=== PATIENT | male | born 1990 | race Two or more races ===

== ENCOUNTER 2021-12-16 09:36 | Emergency (ER) | payer BC, SELFPAY ==
--- NOTE | ~2021-12-16 | XR_ITS ---
EXAMINATION: XR CHEST CLINICAL INFORMATION: Cough. COMPARISON: 03/15/2019 chest and rib radiographs. TECHNIQUE: Frontal view of the chest was obtained. FINDINGS: No significant abnormality is noted involving the heart, lungs, mediastinum, bony thorax or soft tissues. XR/XR chest 1V IMPRESSION: No acute cardiopulmonary process.
[2021-12-16 09:55] VITALS: BP 139/85; PULSE 62; RESP 18; TEMP 36.7; O2SAT 97; BMI 23.0
[2021-12-16 10:22] LABS: COVID-19 Test Negative (Negative); IDNOW Serial# 9DB6401D; Influenza A Negative (Negative); Influenza B2 Negative (Negative)
--- NOTE | 2021-12-16 10:55 | ED_ITS ---
HPI - URI/Sore Throat General Chief Complaint: Upper Respiratory Symptoms Stated Complaint: COVID Symptoms Time Seen by Provider: 12/16/21 10:45 Source: patient Mode of arrival: ambulatory Limitations: no limitations History of Present Illness HPI Narrative: 31-year-old male previously healthy here with reports of vomiting and diarrhea which started Tuesday evening. It continued through till Tuesday then seemed to improve. Patient tells me Tuesday night he developed cough with subjective fevers and chest discomfort with coughing. No shortness of breath, leg swelling or leg pain or abdominal pain. No vomiting or diarrhea since Tuesday. Patient has received COVID vaccinations and flu vaccinations. His girlfriend and child are home with similar symptoms. Related Data Allergies Allergy/AdvReac Type Severity Reaction Status Date / Time No Known Allergies Allergy Unverified 03/13/20 18:06 Review of Systems Review of Systems: Yes all other systems are reviewed and are negative Constitutional: Constitutional: Reports no additional constitutional complaints, Denies body ache(s), Reports chills, Reports fever(s), Denies headache(s) and Denies weakness Eyes: Eyes: Reports no additional eye complaints and Denies change in vision ENT: Reports system reviewed and no additional complaints, except as documented, Denies dizziness, Denies headache(s), Denies nasal congestion, Denies nasal discharge and Denies neck pain Cardiovascular: Cardiovascular: Reports no additional cardiovascular complaints, Reports chest pain, Denies leg edema and Denies dyspnea Respiratory: Respiratory: Reports no additional respiratory complaints, Reports cough and Denies dyspnea Gastrointestinal: Gastrointestinal: Reports no additional gastrointestinal complaints, Denies abdominal pain, Reports diarrhea, Reports nausea and Reports vomiting Genitourinary: Genitourinary: Denies urinary incontinence Musculoskeletal: Musculoskeletal: Reports no additional musculoskeletal complaints, Denies back pain, Denies arthralgias, Denies joint swelling, Denies neck pain, Denies numbness and Denies tingling Integumentary/Breasts: Skin/Breast: Reports system reviewed and no additional complaints, except as docu and Denies rash Neurologic: Denies Abnormal speech present, Denies dizziness, Denies headache(s), Denies numbness, Denies tingling and Denies weakness PMF Past Medical History Attestation statement: The following information was validated with the patient. Source: old records reviewed and nursing notes reviewed Social History Social History Advance Directives: No Advance Directives Information Provided: Yes Physical Exam Vital Signs: Vital Signs: Last Vital Signs Temp 98.1 F 12/16/21 09:55 Pulse 62 12/16/21 09:55 Resp 18 12/16/21 09:55 BP 139/85 12/16/21 09:55 Pulse Ox 97 12/16/21 09:55 O2 Del Method 12/16/21 09:55 BMI result Body Mass Index 23.0 Const: General: cooperative, healthy appearing, comfortable and no acute distress Orientation/consciousness: patient oriented x3 Limitations: no limitations HEENT: Head: Yes normal to inspection Ears: hearing grossly normal bilaterally and TM's normal bilaterally General nose exam: Normal external nose present Face and sinus: Yes normal facial exam Mouth: Normal oral and palatal mucosa present Throat: Yes posterior oropharynx normal Eyes: General: appearance normal, both eyes and all related structures Pupils: Equal, round and reactive pupils present Neck: Neck: Yes normal visual inspection Chest: Chest palpation & inspection: normal inspection of the chest Resp: Effort & Inspection: normal respiratory effort Auscultation: clear to auscultation bilaterally Cardio: Rate: regular rate Rhythm: regular rhythm Peripheral pulses: Peripheral pulses 2+ throughout GI: Inspection: Yes normal to inspection Palpation (GI): Soft to palpation and nontender Auscultation: normal bowel sounds Back/Spine/Pelvis: Thoracic/Lumbar Spine: thoracic and lumbar spine normal to inspection Skin: General skin exam: no rashes or lesions noted Neuro: General: patient oriented x3, no focal motor deficits and normal sensation to monofilament Cranial nerves: Yes Equal, round and reactive pupils present Cognition (Neuro): normal cognition Speech: No Abnormal speech present Gait exam (Neuro): Normal gait present Motor exam (neuro): 5/5 motor strength present throughout Extrem: General: Yes normal to inspection Course Course Course Narrative: Flu and COVID testing are negative. Chest x-ray shows no acute finding. Likely viral syndrome. Patient is tolerating p.o.. His lungs are clear throughout. Vitals are stable. Will discharge home with supportive care. Reviewed worrisome signs and symptoms of when to return to the emergency department. Comfortable discharge home. MDM - URI/Sore Throat MDM Narrative Medical decision making narrative: 31-year-old male here with flu-like symptoms since Tuesday evening. Vitals are s table. Lungs are clear. Exam is normal. Abdomen is soft and nontender. Will check flu and COVID testing, chest x-ray Medical Records Attestation: I reviewed the patient's medical records. Lab Data Attestation: I reviewed the patient's lab results. Labs: Lab Results 12/16/21 12/16/21 Range/Units 10:00 10:00 COVID-19 ([facility]) Negative (Negative) COVID-19 Clin Com See Note Influenza Type A ([facility]) Negative (Negative) Influenza Type B ([facility]) Negative (Negative) Influenza A & B Note See Note Imaging Data Chest x-ray: Attestation: I personally reviewed and interpreted this imaging study as follows: Radiologist's impression: EXAMINATION: XR CHEST CLINICAL INFORMATION: Cough. COMPARISON: 03/15/2019 chest and rib radiographs. TECHNIQUE: Frontal view of the chest was obtained. FINDINGS: No significant abnormality is noted involving the heart, lungs, mediastinum, bony thorax or soft tissues. XR/XR chest 1V IMPRESSION: No acute cardiopulmonary process. ? Discharge Plan Discharge Clinical Impression: Viral infection Patient Disposition: Home, Self-Care Instructions: Viral Syndrome (ED) Additional Instructions: Testing for flu and COVID are negative. Chest x-ray shows no acute finding. Increase fluids, rest Take Motrin or Tylenol for pain or fever Referrals: Physician,None [Primary Care Provider] - Stand Alone Forms: Work/School Release Interventions: ED Discharge Assessment Last Done: 12/16/21 11:47 Discharge Date/Time: 12/16/21 11:49
== END 2021-12-16 11:49 | disposition home or self-care (01) ==
PROVIDERS: Emergency Provider Emergency Medicine
DX: B34.9 Viral infection, unspecified (principal); R05.9 Cough, unspecified; Z20.822 Contact with and (suspected) exposure to COVID-19; Z79.899 Other long term (current) drug therapy
CPT/HCPCS: 71045; 87502; 87635; 99283

== ENCOUNTER 2022-12-15 12:38 | Emergency (ER) | payer BC, SELFPAY ==
--- NOTE | ~2022-12-15 | XR_ITS ---
EXAMINATION: LUMBAR SACRAL SPINE, PA CHEST AND LEFT RIBS. CLINICAL INFORMATION: Fall onto ribs with pain and back pain. COMPARISON: Chest x-ray of December 16, 2021 and rib series of March 15, 2019. TECHNIQUE: Three-view lumbar spine, PA chest, and 3 views of the left ribs. FINDINGS: There are 5 nonrib-bearing lumbar vertebra. The bony texture and alignment is satisfactory without evidence of acute fracture, spondylolisthesis, or spondylolysis. Pedicles are intact. Disc spaces maintained. Sacroiliac joints unremarkable. PA film of the chest does not demonstrate any evidence of acute parenchymal disease, pneumothorax, or pleural effusion. Heart normal size. No evidence of pulmonary edema. No acute displaced left rib fracture is identified. No pneumothorax or pleural effusion. XR/XR ribs LT min 3V w CXR1V IMPRESSION: No acute parenchymal disease within the chest. No acute displaced left rib fracture identified. No significant abnormality of the lumbosacral spine identified.
--- NOTE | ~2022-12-15 | XR_ITS ---
EXAMINATION: LUMBAR SACRAL SPINE, PA CHEST AND LEFT RIBS. CLINICAL INFORMATION: Fall onto ribs with pain and back pain. COMPARISON: Chest x-ray of December 16, 2021 and rib series of March 15, 2019. TECHNIQUE: Three-view lumbar spine, PA chest, and 3 views of the left ribs. FINDINGS: There are 5 nonrib-bearing lumbar vertebra. The bony texture and alignment is satisfactory without evidence of acute fracture, spondylolisthesis, or spondylolysis. Pedicles are intact. Disc spaces maintained. Sacroiliac joints unremarkable. PA film of the chest does not demonstrate any evidence of acute parenchymal disease, pneumothorax, or pleural effusion. Heart normal size. No evidence of pulmonary edema. No acute displaced left rib fracture is identified. No pneumothorax or pleural effusion. XR/XR lumbar spine 2-3V IMPRESSION: No acute parenchymal disease within the chest. No acute displaced left rib fracture identified. No significant abnormality of the lumbosacral spine identified.
--- NOTE | 2022-12-15 12:49 | ED.BACK ---
HPI - Back Pain/Injury General Stated Complaint: Back Pain S/P Fall 12/12/22 Related Data Allergies Allergy/AdvReac Type Severity Reaction Status Date / Time No Known Allergies Allergy Unverified 03/13/20 18:06 Course Course Course Narrative: RME: 32yo M w/ PMHx renal stone, HLD, sent in from PCP for intermittent right sided abdominal pain which became more constant w/nausea x3 days. denies fever, urinary sx abdomen soft & nontender in triage, patient standing/moving around Labs, UA ordered Full HPI, ROS and PE to be performed by primary ED provider.
[2022-12-15 13:04] VITALS: BP 136/93; PULSE 76; RESP 16; TEMP 36.8; O2SAT 98; BMI 22.4
--- NOTE | 2022-12-15 13:04 | ED_ITS ---
HPI - Back Pain/Injury General Chief Complaint: Back Pain/Injury Stated Complaint: Back Pain S/P Fall 12/12/22 Time Seen by Provider: 12/15/22 13:19 Source: patient and RN notes reviewed Mode of arrival: ambulatory Limitations: no limitations History of Present Illness HPI Narrative: This is a 32-year-old male presenting to the emergency department complaints of left-sided back pain and left-sided rib x 3 days. Patient reports that while he was skateboarding he fell and landed onto his left side. Patient reports that he had pain immediately following the fall. Patient denies any chest pain shortness. He reports the pain in left side back and left side his ribs worsened with palpation movement. Patient denies any fevers or chills no other complaints or concerns at this time. MD elicited complaint: back pain Pertinent past history: recent trauma Timing: constant Similar Symptoms Previously: No Quality: aching Radiation: none Exacerbating factors: none Relieving factors: immobilization Context: fall Associated symptoms: denies other symptoms Work related injury: No Related Data Previous Rx's Medication Instructions Recorded cyclobenzaprine 5 mg tablet 5 mg PO TID PRN muscle spasm #10 12/15/22 tabs ibuprofen 600 mg tablet 600 mg PO Q6H PRN pain #30 tabs 12/15/22 Allergies Allergy/AdvReac Type Severity Reaction Status Date / Time No Known Allergies Allergy Unverified 03/13/20 18:06 Review of Systems Review of Systems: Constitutional: No Weight loss, No Fever, No Chills ENT/Mouth: No Ear Pain, No Nasal Congestion, No Sinus Pain, No Hoarseness, No sore throat, No Rhinorrhea, No Swallowing Difficulty Cardiovascular: No Chest Pain, No SOB Respiratory: No Cough, No Sputum, No Wheezing Gastrointestinal: No Nausea, No Vomiting, No Diarrhea, No Constipation, No Abdominal pain Genitourinary: No Dysuria, No Urinary Frequency, No Hematuria, No Urinary Incontinence/retention, No Urgency, No Flank Pain Musculoskeletal: No joint pain, No Myalgias, No Joint Swelling Skin: No Skin Lesions, No rash Neuro: No Weakness, No Numbness, No Paresthesias PMFSH Past Medical History Attestation statement: The following information was validated with the patient. Social History Social History Advance Directives: No Advance Directives Information Provided: Yes Physical Exam Vital Signs: Vital Signs: Last Vital Signs Temp 98.3 F 12/15/22 13:04 Pulse 76 12/15/22 13:04 Resp 16 12/15/22 13:04 BP 136/93 H 12/15/22 13:04 Pulse Ox 98 12/15/22 13:04 O2 Del Method Room Air 12/15/22 13:04 BMI result Body Mass Index 22.4 Const: Other: General: Awake, alert, and oriented X3. No acute distress. HEENT: Normal inspection CVS: Normal heart rate and rhythm. Pulses normal. Respiratory: No respiratory distress, lungs clear to auscultation bilaterally, no wheezes, rales, or rhonchi Skin: Warm, dry, no rashes noted to exposed skin. Normal skin color. Normal skin turgor. Extremities: Normal to inspection MSK: No midline cervical, thoracic, or lumbar spine tenderness. Patient has tenderness to palpation over the left mid lumbar paraspinous muscles with spasm, mild tenderness to palpation along the left anterior ribs approximately ribs 7 through 9. Neuro: Oriented X 3. No motor deficit. No sensory deficit. Course Course Course Narrative: RME: 32yo m w/no sig PMHx c/o low back pain & L sided rib pain [place] [employer] [place] on [place]. denies head trauma or LOC. denies incontinence or retention + left-sided posterior lateral rib tenderness noted. Abdomen soft/nontender. Ambulating with steady gait Rib series and lumbar x-ray ordered Full HPI, ROS and PE to be performed by primary ED provider. Reevaluation(s) Reevaluation #1: Lumbar and rib x-rays are unremarkable for any acute fractures. Patient has remained stable throughout his emergency department stay. Will treat conservatively with ibuprofen and muscle relaxants. Patient given return precautions if any new or worsening symptoms occur. Patient understands and agrees with plan. Time: 15:37 Medical Decision Making Medical Decision Making MDM Narrative: 32-year-old male presenting to the emergency department for evaluation of left- sided rib pain and left-sided back pain after fall off skateboard several days ago. Patient denies any chest pain or shortness of breath. On arrival, patient's blood pressure mildly elevated at 136/93, all other vital signs within normal limits. Patient is not hypoxic. Lungs clear to auscultation bilaterally. Patient has tenderness to the lumbar paraspinous muscles, no midline spine tenderness in addition to anterior left rib pain. Plan: X-rays left rib, lumbar spine x-rays ordered Differential Diagnosis Differential Diagnoses: The differential diagnosis associated with the presentation includes Rib fracture, rib contusion, lumbar muscle spasm, muscle strain Radiology Impression Discussion of test interpretation with radiology: I have reviewed the radiologist's reading. Radiologist Impression: [address] [address] XRay Report Signed Patient: Carlos Terrazas MR#: [id number] : 1990 Acct:[id number] Age/Sex: 32 / M ADM Date: 12/15/22 Loc: [facility].ED Attending Dr: Ordering Physician: Lena Ruiz Date of Service: 12/15/22 Procedure(s): XR ribs LT min 3V w CXR1V Accession Number(s): [id number] cc: Lena Ruiz~ EXAMINATION: LUMBAR SACRAL SPINE, PA CHEST AND LEFT RIBS. CLINICAL INFORMATION: Fall onto ribs with pain and back pain. COMPARISON: Chest x-ray of December 16, 2021 and rib series of March 15, 2019. TECHNIQUE: Three-view lumbar spine, PA chest, and 3 views of the left ribs. FINDINGS: There are 5 nonrib-bearing lumbar vertebra. The bony texture and alignment is satisfactory without evidence of acute fracture, spondylolisthesis, or spondylolysis. Pedicles are intact. Disc spaces maintained. Sacroiliac joints unremarkable. PA film of the chest does not demonstrate any evidence of acute parenchymal disease, pneumothorax, or pleural effusion. Heart normal size. No evidence of pulmonary edema. No acute displaced left rib fracture is identified. No pneumothorax or pleural effusion. XR/XR ribs LT min 3V w CXR1V IMPRESSION: No acute parenchymal disease within the chest. ? No acute displaced left rib fracture identified. ? No significant abnormality of the lumbosacral spine identified. Dictated By: Bolivar Rudolph MD Discharge Plan Discharge Clinical Impression: Lumbar paraspinal muscle spasm, Contusion of ribs Patient Disposition: Home, Self-Care Instructions: Back Pain (ED) Additional Instructions: Your rib x-rays did not show any rib fractures today. Your back x-ray showed no fractures. Please gently stretch these regions and gently massage. Take prescribed ibuprofen and muscle relaxants as directed as needed. Please be aware that muscle relaxants can cause sleepiness, do not drink alcohol or drive while taking this medication. If any new or worsening symptoms occur please return for re-evaluation. Prescriptions: New cyclobenzaprine 5 mg tablet 5 mg PO TID PRN (Reason: muscle spasm) Qty: 10 0RF ibuprofen 600 mg tablet 600 mg PO Q6H PRN (Reason: pain) Qty: 30 0RF Stand Alone Forms: Work/School Release
== END 2022-12-15 16:00 | disposition home or self-care (01) ==
PROVIDERS: Emergency Provider Emergency Medicine
DX: M62.830 Muscle spasm of back (principal); S20.212A Contusion of left front wall of thorax, initial encounter; V00.131A Fall from skateboard, initial encounter; Y93.51 Activity, roller skating (inline) and skateboarding; Y92.9 Unspecified place or not applicable; Y99.9 Unspecified external cause status
CPT/HCPCS: 71101; 72100; 99282; 99283

== ENCOUNTER 2025-02-26 09:37 | Emergency (ER) | payer SELFPAY ==
--- NOTE | ~2025-02-26 | XR_ITS ---
EXAM: Three-view cervical spine x-ray TECHNIQUE: AP, lateral, AP odontoid views INDICATION: Right-sided radiculopathy PRIOR: None FINDINGS: There is straightening of the cervical lordosis. There is no prevertebral soft tissue swelling. There is mild disc space narrowing at C4-5 and mild to moderate narrowing at C5-6. There are small endplate osteophytes posteriorly at C5-6. XR/XR cervical spine 3V IMPRESSION: There is straightening of the expected cervical lordosis. This can be idiopathic, but can also be related to degenerative change, muscle spasm, or posterior soft tissue injury. Mild degenerative changes at C4-5 and C5-6. Electronically signed by: Justin Townsend MD 02/26/2025 11:20 AM EDT
--- NOTE | ~2025-02-26 | XR_ITS ---
EXAMINATION: XR SHOULDER, RIGHT CLINICAL INFORMATION: pain COMPARISON: None available. TECHNIQUE: AP external rotation, Grashey, scapular Y, and axillary views of the right shoulder. FINDINGS: Normal bone mineralization. No fracture, dislocation, or suspicious bone lesion. Normal alignment. The glenohumeral joint is normal. The AC joint is normal. There is a type II acromion. No undersurface spurring. The subacromial space is preserved. Remainder of the soft tissue and bony structures appear normal. XR/XR shoulder RT min 2V IMPRESSION: Normal right shoulder. Electronically signed by: Shashank Lozoya MD 02/26/2025 11:19 AM EDT
[2025-02-26 09:42] VITALS: BP 139/67; PULSE 70; RESP 18; TEMP 36.4; O2SAT 98; BMI 21.4
[2025-02-26 10:00] VITALS: BP 124/74; PULSE 65; RESP 14; TEMP 36.6; O2SAT 99
--- NOTE | 2025-02-26 10:13 | ED_ITS ---
HPI - Extremity Problem General Chief complaint: Extremity Problem Stated complaint: Burning sensation R arm Time Seen by Provider: 02/26/25 09:51 Source: patient and RN notes reviewed Mode of arrival: ambulatory Limitations: no limitations History of Present Illness ED Provider: Jasmin Vargas PA-C HPI Narrative: This is a 35-year-old male who presents emergency department with concerns of right arm, numbness and tingling for the last month. Patient reports he has had no recent trauma or injury. 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 Patient reports that he is right-hand dominant. He denies any headache, fevers, chills, chest pain, shortness of breath, abdominal pain, nausea, vomiting or diarrhea. Patient states that he was seen at an urgent care several weeks ago for his pain however states that they only gave him an injection of Toradol. He had not have a primary care physician who we can follow-up with. No history of IVDA. No other complaints or concerns at this time. MD Complaint: extremity pain Onset (ago): month(s) Pain Consistency: constant Location: right and upper extremity Radiation: distal Relieving factors: immobilization Exacerbating factors: range of motion Associated symptoms: denies other symptoms Related Data Previous Rx's ?Medication ?Instructions ?Recorded cyclobenzaprine 5 mg tablet 5 mg PO TID PRN muscle spa sm #10 12/15/22 tabs ibuprofen 600 mg tablet 600 mg PO Q6H PRN pain #30 t abs 12/15/22 acetaminophen 500 mg tablet 500 mg PO Q6H PRN pain #30 tabs 02/26/25 (Tylenol Extra Strength) cyclobenzaprine 10 mg tablet 10 mg PO TID PRN muscle s pasm #12 02/26/25 tabs prednisone 20 mg tablet 40 mg (2 x 20 mg) PO BID 5 d ays 02/26/25 #20 tabs Allergies Allergy/AdvReac Type Severity Reaction Status Date / Time No Known Allergies Allergy Verified 02/26/25 09:43 Review of Systems Review of Systems: Constitutional: No Weight loss, No Fever, No Chills, No Night Sweats, No Fatigue, No Malaise ENT/Mouth: No Hearing loss, No Ear Pain, No Nasal Congestion, No Sinus Pain, No Hoarseness, No sore throat, No Rhinorrhea, No Swallowing Difficulty Eyes: No Eye Pain, No Swelling, No Redness, No Foreign Body, No Discharge, No Vision Changes Cardiovascular: No Chest Pain, No SOB, No Dyspnea on Exertion, No Orthopnea, No Edema, No Palpitations Respiratory: No Cough, No Sputum, No Wheezing, No Smoke Exposure, No Dyspnea Gastrointestinal: No Nausea, No Vomiting, No Diarrhea, No Constipation, No Abdominal pain, No Hematochezia, No Melena Genitourinary: No irregular bleeding, No Dysuria, No Urinary Frequency, No Hematuria, No Urinary Incontinence/retention, No Urgency, No Flank Pain, No Urinary Flow Changes, No Hesitancy Musculoskeletal: No joint pain, No Myalgias, No Joint Swelling Skin: No Skin Lesions, No rash Neuro: No Weakness, + Numbness, + Paresthesias, No Loss of Consciousness, No Dizziness, No Headache Psych: No Anxiety/Panic, No Depression, No SI/HI/AH/VH, No Social Issues, Heme/Lymph: No Bruising, No Bleeding,No Lymphadenopathy Endocrine: No Polyuria, No Polydipsia, No Temperature Intolerance Yes all other systems are reviewed and are negative Constitutional: Constitutional: Reports as per [facility] Social History Social History Alcohol intake: current Alcohol intake frequency: a few times a month Substance Use Type: Marijuana Physical Exam Vital Signs: Vital Signs: Last Vital Signs Temp 98.1 F 02/26/25 13:48 Pulse 71 02/26/25 13:48 Resp 15 02/26/25 13:48 BP 123/74 02/26/25 13:48 Pulse Ox 100 02/26/25 13:48 O2 Del Method Room Air 02/26/25 13:48 BMI result Body Mass Index 21.4 Const: General: cooperative, comfortable and no acute distress Orientation/consciousness: patient oriented x3 Limitations: no limitations HEENT: Head: Yes normal to inspection, Yes normocephalic and Yes atraumatic Ears: hearing grossly normal bilaterally General nose exam: Normal external nose present Face and sinus: Yes normal facial exam Mouth: Normal oral and palatal mucosa present, oropharynx normal and moist mucous membranes Throat: Yes posterior oropharynx normal Eyes: General: appearance normal, both eyes and all related structures Eyelids: Yes eyelids normal Conjunctivae: conjunctivae normal Sclerae: sclerae normal Pupils: Equal, round and reactive pupils present EOM: EOMs intact bilaterally Neck: Other: No nuchal rigidity, full ROM, no midline spine tenderness. 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 Full ROM. Distal sensation circulation intact. General: Yes normal to inspection Right upper extremity: normal to inspection Left upper extremity: normal to inspection Right lower extremity: normal to inspection Left lower extremity: normal to inspection Medical Decision Making Medical Decision Making MDM Narrative: This is a 35-year-old male who presents emergency department with concerns of right shoulder pain and numbness tingling down his right arm for the last month. No trauma or injury. On arrival, vital signs within normal limits. She is speaking in full sentences under no acute distress. No chest pain or shortness for breath. No weakness, headache, dizziness. Differential diagnoses including cervical radiculopathy, tendonitis, sprain, strain. Will obtain x-rays of the cervical spine and right shoulder to rule out any bony abnormalities. Discussed analgesic treatment with waiting, he states that he jus wants the images, declining pain medication at this time. 4:56 PM 02/26/2025 (Jasmin Vagras PA-C): X-rays revealing degenerative changes in the cervical spine, this correlates with findings on physical exam, patient likely experiencing cervical radiculopathy, will treat with course of predn isone, he will also follow-up with his primary care physician. Given strict return precautions. He understands agrees with plan. Patient stable for discharge. Differential Diagnosis Differential Diagnoses: The differential diagnosis associated with the presentation includes See above Radiology Impression Discussion of test interpretation with radiology: I have reviewed the radiologist's reading. Radiologist Impression: FINDINGS: Normal bone mineralization. No fracture, dislocation, or suspicious bone lesion. Normal alignment. The glenohumeral joint is normal. The AC joint is normal. There is a type II acromion. No undersurface spurring. The subacromial space is preserved. Remainder of the soft tissue and bony structures appear normal. XR/XR shoulder RT min 2V IMPRESSION: Normal right shoulder. Electronically signed by: Shashank Lozoya MD 02/26/2025 11:19 AM EDT RP Dictated By: Shashank Lozoya MD XR/XR cervical spine 3V IMPRESSION: There is straightening of the expected cervical lordosis. This can be idiopathic, but can also be related to degenerative change, muscle spasm, or posterior soft tissue injury. Mild degenerative changes at C4-5 and C5-6. Electronically signed by: Justin Townsend MD 02/26/2025 11:20 AM EDT RP Dictated By: Justin Townsend MD Discharge Plan Discharge Clinical Impression: Cervical radiculopathy Patient Disposition: Home, Self-Care Instructions: Cervical Radiculopathy (ED) Additional Instructions: You were seen in the ER due to right arm numbness/tingling. Your shoulder xray shows no bony abnormalities. Your xray of your neck shows degeneration of your C4-C5 and C5-C6. You likely have some nerve involvement causing you to have your symptoms. Please take prescribed prednisone as directed, this is a steroid that can help decrease inflammation. Take Tylenol as needed for pain. Cyclobenzaprine as a muscle relaxants, take as needed. Please be advised that this can cause drowsiness, do not drink alcohol or drive while taking this medication. You may follow-up with the health care law specialist. If any new or worsening symptoms occur including but not limited to severe chest pain, shortness of breath, please seek emergent care. Prescriptions: New cyclobenzaprine 10 mg tablet 10 mg PO TID PRN (Reason: muscle spasm) Qty: 12 0RF prednisone 20 mg tablet 40 mg PO BID 5 Days Qty: 20 0RF acetaminophen [Tylenol Extra Strength] 500 mg tablet 500 mg PO Q6H PRN (Reason: pain) Qty: 30 0RF No Action cyclobenzaprine 5 mg tablet 5 mg PO TID PRN (Reason: muscle spasm) Qty: 10 0RF ibuprofen 600 mg tablet 600 mg PO Q6H PRN (Reason: pain) Qty: 30 0RF Referrals: [facility] [Provider Group, Neurosurgery] Stand Alone Forms: Work/School Release Interventions: ED Discharge Assessment Last Done: 02/26/25 13:48 Discharge Date/Time: 02/26/25 13:49 Print Language: Greenlandic
--- OUTSIDE RECORDS SUMMARY | 2025-02-26 11:20 | XMS_ITS ---
Author Name [facility] Organization Unknown Care Team Organization Name Specialty Phone Email Start Date End Da te [facility] Termed, PROVIDER Primary Care 05/04/202201/25
[2025-02-26 12:00] VITALS: BP 124/68; PULSE 77; RESP 15; TEMP 36.6; O2SAT 100
[2025-02-26 13:46] VITALS: BP 123/74; PULSE 71; RESP 15; TEMP 36.7; O2SAT 100
[2025-02-26 13:48] VITALS: BP 123/74; PULSE 71; RESP 15; TEMP 36.7; O2SAT 100
== END 2025-02-26 13:49 | disposition home or self-care (01) ==
PROVIDERS: Emergency Provider Emergency Medicine
DX: M54.12 Radiculopathy, cervical region (principal); R20.0 Anesthesia of skin
CPT/HCPCS: 72040; 73030; 99283; 99284

== ENCOUNTER → 2025-02-26 10:51 | Outpatient (BNV) | payer SELFPAY | PROVIDERS: Emergency Provider Emergency Medicine; Visit Provider Radiology Diagnostic Radiology | DX: M54.12 Radiculopathy, cervical region (principal); M25.511 Pain in right shoulder | CPT/HCPCS: 72040; 73030 ==